=== PATIENT | male | born 1995 ===

== ENCOUNTER 2021-01-16 11:50 | Emergency (ER) | payer SELFPAY ==
[~2021-01-16] VITALS: Ht 177.8 cm; Wt 75.3 kg
== END 2021-01-16 19:41 | disposition left against medical advice (07) ==
LOC: ED 11:50
DX: R10.9 Unspecified abdominal pain (principal); R19.7 Diarrhea, unspecified; Z53.21 Procedure and treatment not carried out due to patient leaving prior to being seen by health care provider